=== PATIENT | male | born 1975 | race Caucasian/White ===

== ENCOUNTER 2016-11-30 10:13 | Emergency (ER) | payer OTHER, MEDICARE ==
[~2016-11-30] VITALS: Ht 172.7 cm; Wt 77.1 kg
[~2016-11-30 10:13] MED LIST: DICY10CA3 PO; ONDA4TAB7 PO
[2016-11-30 10:32] VITALS: BP 109/76
[2016-11-30] MEDS ORDERED: DEXAMETHASONE SOD PHOS 20 MG/5 ML VIAL. IM ONE (10:45)
[2016-11-30] MEDS ORDERED: HYDROcodone/APAP 5/325MG 1 TAB TABLET PO ONE (10:45)
[2016-11-30] MEDS ORDERED: hydrOXYzine IM 50 MG/ML VIAL IM ONE (10:45)
[2016-11-30] MEDS ORDERED: METH4TAB2 PO (11:01)
[2016-11-30] MEDS ORDERED: HYDR50TA PO (11:01)
--- NOTE | 2016-11-30 11:01 | PHYS DOC ---
Past Medical History Past Medical History: Asthma, COPD, Depression, GERD, MRSA, Unknown Additional Past Medical Histor: bilat rotator cuff tears Past Surgical History: Tonsillectomy, Other Additional Past Surgical Histo: 4 hernia repair, (l) sided exploratory surgery , upper gi reconstruction Alcohol Use: None Drug Use: Marijuana Adult General Chief Complaint Chief Complaint: SKIN RASH/ABSCESS HPI HPI Patient is a 41 year old male with history of asthma and COPD depression acid reflex who presents today with shingles rash that began 4 days ago. Patient states he was seen by the PCP 3 days ago and was put on acyclovir. Patient presents today requesting something for pain as well as a steroid shot. Patient denies any fever. PCP Dr. Coon Review of Systems Review of Systems Constitutional: See history of present illness Eyes: Denies change in visual acuity, redness, or eye pain [] Musculoskeletal: Denies back pain or joint pain [] Integument:shingles rash Neurologic: Denies headache, focal weakness or sensory changes [] Endocrine: Denies polyuria or polydipsia [] Current Medications Current Medications Current Medications Medications (Trade) Dose Ordered Sig/Galdino Start Time Stop Time Status Last Admin Dose Admin Acetaminophen/ Hydrocodone Bitart (Lortab 5/325) 1 tab 1X ONCE 11/30/16 10:45 11/30/16 10:49 DC Dexamethasone Sodium Phosphate (Decadron) 10 mg 1X ONCE 11/30/16 10:45 11/30/16 10:49 DC Hydroxyzine HCl (Vistaril Im) 25 mg 1X ONCE 11/30/16 10:45 11/30/16 10:49 DC Allergies Allergies Allergies Coded Allergies Type Severity Reaction Last Updated Verified Penicillins Allergy Unknown 06/02/13 Yes Physical Exam Physical Exam Constitutional: Well developed, well nourished, no acute distress, non-toxic appearance. [] HENT: Normocephalic, atraumatic, bilateral external ears normal, oropharynx moist, no oral exudates, nose normal. [] Skin: Patient has moderate amount of erythematous papular rash in grouped clusters on the right upper extremity, left upper extremity, bilateral lower extremities, and small amount of the seventh rash on his abdomen and left lateral neck. Back: No tenderness, no CVA tenderness. [] Extremities: No tenderness, no cyanosis, no clubbing, ROM intact, no edema. [] Neurologic: Alert and oriented X 3, normal motor function, normal sensory function, no focal deficits noted. [] Psychologic: Affect normal, judgement normal, mood normal. [] Current Patient Data Vital Signs Vital Signs Date Time Temp Pulse Resp B/P (MAP) Pulse Ox O2 Delivery O2 Flow Rate FiO2 11/30/16 10:32 97.6 54 16 94 Room Air 97.6 EKG EKG [] Radiology/Procedures Radiology/Procedures [] Course & Med Decision Making Course & Med Decision Making Pertinent Labs and Imaging studies reviewed. (See chart for details) Patient has shingles rash that began 4 days ago. He is currently on acyclovir. His requesting a steroid some steroids and something for pain. He was given Decadron IM in the ED. discharged with Medrol Dosepak, Ultram and hydroxyzine. Encouraged to continue taking acyclovir. Follow-up with his own PCP in 1-2 weeks. Dragon Disclaimer Dragon Disclaimer This electronic medical record was generated, in whole or in part, using a voice recognition dictation system. Departure Departure Impression: Primary Impression: Shingles rash Disposition: HOME, SELF-CARE Condition: STABLE Referrals: SYLVIA COON MD (PCP) Follow-up with your doctor in 1-2 weeks Patient Instructions: Shingles Additional Instructions: You were seen for shingles rash. Continue taking Acyclovir and the provided prescription medications as ordered. F/u with your doctor in 1-2 weeks Scripts Methylprednisolone (MEDROL) 4 Mg Tab.ds.pk 1 PKG PO UD, #1 PKG Prov: SHANNAN DURAN APRN 11/30/16 Hydroxyzine Hcl (HYDROXYZINE HCL) 50 Mg Tablet 50 MG PO QID Y for RASH, #30 TAB Prov: SHANNAN DURAN APRN 11/30/16 Problem Qualifiers Primary Impression: Shingles rash Herpes zoster complications: without complications Qualified Codes: B02.9 - Zoster without complications SHANNAN DURAN APRN Nov 30, 2016 11:01
== END 2016-11-30 11:10 | disposition home or self-care (01) ==
LOC: ER 10:13
DX: B02.9 Zoster without complications (principal); F32.9 Major depressive disorder, single episode, unspecified; J44.9 Chronic obstructive pulmonary disease, unspecified; K21.9 Gastro-esophageal reflux disease without esophagitis; Z88.0 Allergy status to penicillin; Z86.14 Personal history of Methicillin resistant Staphylococcus aureus infection; F12.10 Cannabis abuse, uncomplicated
CPT/HCPCS: 96372; 99284; J1100; J3410

== ENCOUNTER → 2017-01-21 | Outpatient (CLI) | payer OTHER, MEDICARE ==
[~2017-01-21] MED LIST changes: +CLAR500T PO; +HYDR50TA PO; +METH4TAB2 PO
--- NOTE | 2017-01-21 11:32 | KCIC ---
PQRS Compliance Statement: One or more of the following individualized dose reduction techniques were utilized for this examination: 1. Automated exposure control 2. Adjustment of the mA and/or kV according to patient size 3. Use of iterative reconstruction technique CT CHEST WO CONTRAST Clinical Indication: Productive cough, shortness of air x3 weeks. Smoker. Comparison: None. TECHNIQUE: Helical CT imaging of the chest is performed without IV contrast. Findings: There is no adenopathy in the chest. Imaging evaluation of the frances without IV contrast. The great vessels are normal caliber. Cardiac size normal, no pericardial effusion. No pleural effusion. The central airways are patent. Tiny calcified granuloma right upper lobe. Mild respiratory motion artifact degrades image quality, most apparent in the lower lobes. Small bulla anterior left upper lobe. Tiny calcified granuloma posterior left lower lobe. In the bilateral upper lobes there are centrilobular nodules. No lung consolidation. No suspicious pulmonary nodule is seen. There is a 2.5 cm left renal cyst. Visualized upper abdomen otherwise unremarkable. No acute bone abnormality. IMPRESSION: There are centrilobular nodules in the bilateral upper lobe suggestive of nonspecific bronchiolitis. Electronically signed by: Lucius Huitron MD (01/21/2017 11:29 AM) [id number]
== END | disposition home or self-care (01) ==
LOC: KCIC CT 10:20
PROVIDERS: ATTEND Family Medicine
DX: R91.8 Other nonspecific abnormal finding of lung field (principal); J43.9 Emphysema, unspecified; R05 Cough
CPT/HCPCS: 71250

== ENCOUNTER 2017-01-22 21:53 | Emergency (ER) | payer OTHER, MEDICARE ==
[~2017-01-22 21:53] MED LIST changes: -CLAR500T PO
[2017-01-22 22:51] LABS: BASO % 0 % (0-3); EOS % 0 % (0-3); HEMATOCRIT 46.4 % (39.0-53.0); HEMOGLOBIN 15.3 g/dL (13.0-17.5); LYMPH # 2.4 x10^3/uL (1.0-4.8); LYMPH % 18 % (24-48); MEAN CORPUSCULAR HEMOGLOBIN 31 pg (25-35); MEAN CORPUSCULAR HGB CONC 33 g/dL (31-37); MEAN CORPUSCULAR VOLUME 93 fL (79-100); MONO % 8 % (0-9); NEUT % 74 % (31-73); PLATELET COUNT 313 x10^3/uL (140-400); RED BLOOD COUNT 4.99 x10^6/uL (4.30-5.70); RED CELL DISTRIBUTION WIDTH 13.5 % (11.5-14.5); WHITE BLOOD COUNT 13.9 x10^3/uL (4.0-11.0)
[2017-01-22] MEDS ORDERED: methylPREDNISolone SOD SUCC PF 125 MG/2 ML VIAL. IV ONE (23:00)
[2017-01-22] MEDS ORDERED: IV NORMAL SALINE 1000ML BAG 1,000 ML IV ONE (23:00)
[2017-01-22] MEDS ORDERED: IPRATRPIUM/ALBUTEROL 0.5/2.5MG 3 ML NEBU. NEB ONE (23:00)
[2017-01-22 23:04] LABS: CALCIUM 9.1 mg/dL (8.5-10.1); CREATININE 0.9 mg/dL (0.7-1.3); GFR 92.5; POTASSIUM 4.4 mmol/L (3.5-5.1)
[2017-01-22 23:09] LABS: ALBUMIN 3.8 g/dL (3.4-5.0); ALBUMIN/GLOBULIN RATIO 1.2 (1.0-1.7); TOTAL BILIRUBIN 0.1 mg/dL (0.2-1.0); TOTAL PROTEIN 7.1 g/dL (6.4-8.2)
[2017-01-22] MEDS ORDERED: IOHEXOL 300 MG/ML 75 ML VIAL IV ONE (23:15)
[2017-01-22] MEDS ORDERED: CONTRAST GIVEN MC PRN (23:15)
[2017-01-22 23:43] LABS: OBC FLU VALID
--- NOTE | 2017-01-22 23:56 | RAD ---
Examination: CT angiography chest. HISTORY: History of shortness of breath, cough COMPARISON: None available TECHNIQUE: Axial CT and radiographic images were performed with IV contrast. Coronal and sagittal 3-D MIP images of reformats are performed Exposure: One or more of the following individualized dose reduction techniques were utilized for this examination: 1. Automated exposure control 2. Adjustment of the mA and/or kV according to patient size 3. Use of iterative reconstruction technique FINDINGS: There is no evidence of filling defect identified in the main pulmonary arterial trunk and right and left main pulmonary arteries and the visualized lobar, segmental branches of the pulmonary arteries. There are tiny groundglass nodular diffuse opacifications identified throughout the bilateral lungs in centrilobular distribution. No evidence of pleural effusion or pneumothorax. The visualized liver, spleen, adrenals grossly appears unremarkable No evidence of lytic bony destructive lesion. No evidence of lytic bony destructive lesion IMPRESSION: 1. No evidence of pulmonary embolism. 2. Multiple centrilobular groundglass nodules identified throughout the bilateral lungs. Differential includes hypersensitivity pneumonitis, bronchiolitis, respiratory broncholitis interstitial lung disease or mycobacterial infection. Electronically signed by: Teja Dior MD (01/22/2017 11:53 PM) [facility]
[2017-01-23 00:30] VITALS: BP 117/63
[2017-01-23] MEDS ORDERED: CLAR500T PO (00:40)
[2017-01-23] MEDS ORDERED: CLARITHROMYCIN 500 MG TABLET. PO ONE (00:45)
--- NOTE | 2017-01-23 01:04 | ED.ADGEN ---
Past Medical History Past Medical History: Asthma, Cancer, COPD, Depression, GERD, MRSA, Unknown Additional Past Medical Histor: bilat rotator cuff tears, possible lung CA Past Surgical History: Tonsillectomy, Other Additional Past Surgical Histo: 4 hernia repair, (l) sided exploratory surgery , upper gi reconstruction Alcohol Use: None Drug Use: Marijuana Adult General Chief Complaint Chief Complaint: SHORTNESS OF BREATH HPI HPI Patient is a 41 year old man, history of tobacco abuse, with COPD, GERD, hiatal hernia surgery that occurred one month ago, and persistent chronic cough and shortness of breath since that time, who presents emergency Department with complaint of worsening shortness of breath and dyspnea and exertion, associated with lightheadedness. Patient denies any chest pain, states he is having some chest tightness, and wheezing, states he is nonproductive cough. He states he received a CT of the chest yesterday his primary care provider, to evaluate for "possible pneumonia or" if I have cancer". Patient states he did quit smoking recently. He denies any nausea or vomiting, any focal weakness, numbness, tingling, any blurry vision, any headache, any fevers or chills. Patient states he finished a course of steroids yesterday, 6 day taper, and a course of amoxicillin. He states he does have a nebulizer and inhaler home, which she has been using intermittently without relief. He is very concerned that he may have cancer as the cause of his symptoms. He hasn't reported follow-up with his doctor but has not received the results of the CT that was performed yesterday yet. Oxygen saturation is 98% on room air, citrate rate is slightly labored, with mild wheezing. Review of Systems Review of Systems Constitutional: Denies fever or chills. [] Eyes: Denies change in visual acuity. [] HENT: Denies nasal congestion or sore throat. [] Respiratory: Nonproductive cough, shortness of breath, dyspnea and exertion. Cardiovascular: Denies chest pain or edema. [] GI: Denies abdominal pain, nausea, vomiting, bloody stools or diarrhea. [] : Denies dysuria. [] Musculoskeletal: Denies back pain or joint pain. [] Integument: Denies rash. [] Neurologic: Denies headache, focal weakness or sensory changes. [] Endocrine: Denies polyuria or polydipsia. [] Lymphatic: Denies swollen glands. [] Psychiatric: Denies depression or anxiety. [] Current Medications Current Medications Current Medications Medications (Trade) Dose Ordered Sig/Galdino Start Time Stop Time Status Last Admin Dose Admin Albuterol/ Ipratropium (Duoneb) 3 ml 1X ONCE 01/22/17 23:00 01/22/17 23:01 DC 01/22/17 22:54 3 ML Clarithromycin (Biaxin) 500 mg 1X ONCE 01/23/17 00:45 01/23/17 00:46 DC Info (Do NOT chart on this entry -- for MONITORING) 1 each PRN DAILY PRN 01/22/17 23:15 01/24/17 23:14 Iohexol (Omnipaque 300 Mg/ml) 75 ml 1X ONCE 01/22/17 23:15 01/22/17 23:16 DC 01/22/17 23:25 75 ML Methylprednisolone Sodium Succinate (SOLU-Medrol 125MG VIAL) 125 mg 1X ONCE 01/22/17 23:00 01/22/17 23:01 DC 01/22/17 23:15 125 MG Sodium Chloride 1,000 ml @ 1,000 mls/hr 1X ONCE 01/22/17 23:00 01/22/17 23:59 DC 01/22/17 23:15 1,000 MLS/HR Allergies Allergies Allergies Coded Allergies Type Severity Reaction Last Updated Verified Penicillins Allergy Unknown 06/02/13 Yes Physical Exam Physical Exam Constitutional: Well developed, well nourished, no acute distress, non-toxic appearance. [] HENT: Normocephalic, atraumatic, bilateral external ears normal, oropharynx moist, no oral exudates, nose normal. [] Eyes: PERRLA, EOMI, conjunctiva normal, no discharge. [] Neck: Normal range of motion, no tenderness, supple, no stridor. [] Cardiovascular:Heart rate regular rhythm, no murmur, S1, S2, no rubs or gallops. [] Lungs & Thorax: Patient with wheezing scattered, noted throughout, diminished breath soundsbilaterally, no rhonchi or rales. No chest or crepitus or tenderness. Abdomen: Bowel sounds normal, soft, no tenderness, no rebound, rigidity, no guarding, no masses, no pulsatile masses. [] Skin: Warm, dry, no erythema, no rash. [] Back: No tenderness, no CVA tenderness. [] Extremities: No tenderness, no cyanosis, no clubbing, ROM intact, no edema. [ Negative Homans sign.] Neurologic: Alert and oriented X 3, normal motor function, normal sensory function, no focal deficits noted. [] Psychologic: Affect normal, judgement normal, mood normal. [] Current Patient Data Vital Signs Vital Signs Date Time Temp Pulse Resp B/P (MAP) Pulse Ox O2 Delivery O2 Flow Rate FiO2 01/22/17 22:57 98 Nasal Cannula 2.0 01/22/17 22:08 97.3 79 31 141/79 (99) 97.3 Lab Values Laboratory Tests Test 01/22/17 22:15 01/22/17 23:20 White Blood Count 13.9 x10^3/uL (4.0-11.0) H Red Blood Count 4.99 x10^6/uL (4.30-5.70) Hemoglobin 15.3 g/dL (13.0-17.5) Hematocrit 46.4 % (39.0-53.0) Mean Corpuscular Volume 93 fL (79-100) Mean Corpuscular Hemoglobin 31 pg (25-35) Mean Corpuscular Hemoglobin Concent 33 g/dL (31-37) Red Cell Distribution Width 13.5 % (11.5-14.5) Platelet Count 313 x10^3/uL (140-400) Neutrophils (%) (Auto) 74 % (31-73) H Lymphocytes (%) (Auto) 18 % (24-48) L Monocytes (%) (Auto) 8 % (0-9) Eosinophils (%) (Auto) 0 % (0-3) Basophils (%) (Auto) 0 % (0-3) Neutrophils # (Auto) 10.3 x10^3uL (1.8-7.7) H Lymphocytes # (Auto) 2.4 x10^3/uL (1.0-4.8) Monocytes # (Auto) 1.1 x10^3/uL (0.0-1.1) Eosinophils # (Auto) 0.0 x10^3/uL (0.0-0.7) Basophils # (Auto) 0.0 x10^3/uL (0.0-0.2) Sodium Level 138 mmol/L (136-145) Potassium Level 4.4 mmol/L (3.5-5.1) Chloride Level 102 mmol/L (98-107) Carbon Dioxide Level 26 mmol/L (21-32) Anion Gap 10 (6-14) Blood Urea Nitrogen 30 mg/dL (8-26) H Creatinine 0.9 mg/dL (0.7-1.3) Estimated GFR (Cockcroft-Gault) 92.5 BUN/Creatinine Ratio 33 (6-20) H Glucose Level 92 mg/dL (70-99) Calcium Level 9.1 mg/dL (8.5-10.1) Total Bilirubin 0.1 mg/dL (0.2-1.0) L Aspartate Amino Transferase (AST) 15 U/L (15-37) Alanine Aminotransferase (ALT) 30 U/L (16-63) Alkaline Phosphatase 61 U/L (46-116) Troponin I Quantitative < 0.017 ng/mL (0.000-0.055) CK-Wkm-Y-Type Natriuretic Peptide 51 pg/mL (0-124) Total Protein 7.1 g/dL (6.4-8.2) Albumin 3.8 g/dL (3.4-5.0) Albumin/Globulin Ratio 1.2 (1.0-1.7) Influenza Type A Antigen Negative (NEGATIVE) Influenza Type B Antigen Negative (NEGATIVE) Laboratory Tests 01/22/17 22:15 Laboratory Tests 01/22/17 22:15 EKG EKG EC: Sinus rhythm, heart rate 60 beats/minute, axis deviation with a lead voltage noted, with left anterior vesicular block noted, contour normality as stated, with a QTC of 377, MI 152, QRS of 92, abnormal ECG, does not meet STEMI criteria. As interpreted by me.[] Radiology/Procedures Radiology/Procedures [][facility] [address] [place] [address] IMAGING REPORT Signed PATIENT: RAMIREZ MCDERMOTT ACCOUNT: [id number] : 1975 LOCATION: ER AGE: 41 SEX: M EXAM STATUS: REG ER ORD. PHYSICIAN: JACK STEWART DO REASON: CP/SOB/near syncope s/p surgery/ r/o PE PROCEDURE: CT ANGIOGRAPHY CHEST Examination: CT angiography chest. HISTORY: History of shortness of breath, cough COMPARISON: None available TECHNIQUE: Axial CT and radiographic images were performed with IV contrast. Coronal and sagittal 3-D MIP images of reformats are performed Exposure: One or more of the following individualized dose reduction techniques were utilized for this examination: 1. Automated exposure control 2. Adjustment of the mA and/or kV according to patient size 3. Use of iterative reconstruction technique FINDINGS: There is no evidence of filling defect identified in the main pulmonary arterial trunk and right and left main pulmonary arteries and the visualized lobar, segmental branches of the pulmonary arteries. There are tiny groundglass nodular diffuse opacifications identified throughout the bilateral lungs in centrilobular distribution. No evidence of pleural effusion or pneumothorax. The visualized liver, spleen, adrenals grossly appears unremarkable No evidence of lytic bony destructive lesion. No evidence of lytic bony destructive lesion IMPRESSION: 1. No evidence of pulmonary embolism. 2. Multiple centrilobular groundglass nodules identified throughout the bilateral lungs. Differential includes hypersensitivity pneumonitis, bronchiolitis, respiratory broncholitis interstitial lung disease or mycobacterial infection. Electronically signed by: Teja Dior MD (01/22/2017 11:53 PM) [facility] DICTATED and SIGNED BY: TEJA DIOR MD DATE: 01/22/17 2009 CC: JACK STEWART DO; SYLVIA KUHN MD ~ Course & Med Decision Making Course & Med Decision Making Pertinent Labs and Imaging studies reviewed. (See chart for details) I did review patient's CT that was performed yesterday, it was performed without contrast, and with his history of recent surgery, and shortness of breath, patient is agreeable to receiving CT of the chest with contrast to rule out any PE or other abnormalities that were not fully elucidated on his noncontrast CT. Repeat CT is not reveal any evidence of PE or other vascular abnormalities, patient noted to have multiple nodules bilaterally, with concern for possible pneumonitis versus an infectious source such as mycobacteria. Patient received Solu-Medrol in the emergency department, and a DuoNeb, with significant improvement of his symptoms. Patient states he is feeling "100% better". I did discuss the findings of the CT with the patient, along with his unremarkable laboratory studies, along with a mild leukocytosis, which may be due to his recent steroid use, as patient does not have any fever, productive cough, with history since this time. I did discuss potential admission to the hospital the patient based on his symptoms and findings, patient states again he is feeling much better, and after and ambulatory trial emergency department where his oxygen saturations remained at 98% with a heart rate in the 60s without any development of symptoms, I believe that it would be appropriate for the patient be discharged home, but expressed to him that it is extremely important he follow-up with pulmonary for additional evaluation. Patient states he'll be able to do so, states he can contact his primary care provider's office , and was also given contact patient for Dr. Reed, additionally patient was given a Profen for clarithromycin, 500 mg taken twice daily for 10 days, and a first dose in the ED. At this time we'll hold off on additional steroids as patient has just completed a 6 day taper. Patient does have his nebulizer and his SGOT inhaler at home which he states will continue to use as directed, and return to the ED if any concerning or new symptoms develop. Patient voiced understanding and agreement with all plans precautions and instructions. Patient discharged home in stable condition with plan and prescriptions as above. Dragon Disclaimer Dragon Disclaimer This electronic medical record was generated, in whole or in part, using a voice recognition dictation system. Departure Impression: Primary Impression: Shortness of breath Disposition: 01 HOME, SELF-CARE Condition: IMPROVED Scripts Clarithromycin (CLARITHROMYCIN) 500 Mg Tablet 1 TAB PO BID, #20 TAB Prov: JACK STEWART DO 01/23/17 JACK STEWART DO Jan 23, 2017 01:04
--- NOTE | 2017-01-23 07:26 | EKG ---
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
== END 2017-01-23 00:44 | disposition home or self-care (01) ==
LOC: ER 21:53
DX: R06.02 Shortness of breath (principal); J44.0 Chronic obstructive pulmonary disease with (acute) lower respiratory infection; K44.9 Diaphragmatic hernia without obstruction or gangrene; K21.9 Gastro-esophageal reflux disease without esophagitis; Z86.14 Personal history of Methicillin resistant Staphylococcus aureus infection; Z87.891 Personal history of nicotine dependence; Z88.0 Allergy status to penicillin
CPT/HCPCS: 36415; 71275; 80053; 83880; 84484; 85025; 87804; 93005; 94250; 94640; 96361; 96374; 99285; J2930; J7030; J7620; Q9967

== ENCOUNTER → 2017-02-27 | Outpatient (CLI) | payer OTHER, MEDICARE ==
[~2017-02-27] MED LIST changes: +CLAR500T PO; +LEXAPRO20 MG PO; +TRAZ50TA15 PO; +UMEC1DIS IH; +VENTOLIN HFA18 GM INH
--- NOTE | 2017-02-27 16:03 | RAD ---
CT of the chest without contrast, 02/27/2017: History: Follow-up abnormal chest radiograph Noncontrast scans were obtained as requested and compared to an exam from 01/22/2017. The bilateral scattered centrilobular pulmonary opacities seen on the previous study have cleared. There is minimal linear basilar scarring. No current pulmonary infiltrate is seen. There is no evidence of pleural fluid. The thoracic aorta is unremarkable. No mediastinal adenopathy is seen. Incidental note is made of a 3 cm cyst in the left kidney. IMPRESSION: 1. Bilateral tiny nodular pulmonary opacities have cleared. These probably represented pneumonia on an infectious or hypersensitivity basis. 2. No new chest abnormality is detected. PQRS Compliance Statement: One or more of the following individualized dose reduction techniques were utilized for this examination: 1. Automated exposure control 2. Adjustment of the mA and/or kV according to patient size 3. Use of iterative reconstruction technique
== END | disposition home or self-care (01) ==
LOC: CT 14:18
PROVIDERS: ATTEND Internal Medicine Pulmonary Disease
DX: N28.1 Cyst of kidney, acquired (principal)
CPT/HCPCS: 71250

== ENCOUNTER 2017-08-04 19:43 | Emergency (ER) | payer OTHER, MEDICARE | END 2017-08-04 21:14 | disposition home or self-care (01) | LOC: ER 19:43 | DX: M77.8 Other enthesopathies, not elsewhere classified (principal); J44.9 Chronic obstructive pulmonary disease, unspecified; K21.9 Gastro-esophageal reflux disease without esophagitis; F12.10 Cannabis abuse, uncomplicated; Z88.0 Allergy status to penicillin | CPT/HCPCS: 29130; 73130; 73140; 99284-25 ==

== ENCOUNTER → 2017-09-15 | Outpatient (CLI) | payer OTHER, MEDICARE | END | disposition home or self-care (01) | LOC: US 07:20 | DX: N50.9 Disorder of male genital organs, unspecified (principal); N43.3 Hydrocele, unspecified | CPT/HCPCS: 76870 ==

== ENCOUNTER → 2017-12-03 | Outpatient (CLI) | payer OTHER, MEDICARE | END | disposition home or self-care (01) | LOC: KCIC CT 07:56 | DX: J44.1 Chronic obstructive pulmonary disease with (acute) exacerbation (principal); K21.9 Gastro-esophageal reflux disease without esophagitis; I10 Essential (primary) hypertension; Z87.891 Personal history of nicotine dependence | CPT/HCPCS: 71250 ==